=== PATIENT | female | born 1960 | race Caucasian/White ===

== ENCOUNTER → 2024-12-23 | Day surgery (SDC) | payer OTHER ==
[2024-12-18 13:24] VITALS: BP 138/82
[~2024-12-23] VITALS: Ht 162.6 cm; Wt 62.1 kg
[~2024-12-23] MED LIST: BUPIVACAINE HCL 30 ML VIAL IJ ONE; CEFAZOLIN SODIUM 1,000 MG VIAL IV ONE; CELEBREX100 MG PO; COZAAR100 MG PO; Cozaar PO; DEXAMETHASONE SODIUM PHOSPHATE 4 MG/ML VIAL ONE; DICLOFENAC SODI75 MG PO; FAMOTIDINE/PF 20 MG/2 ML VIAL IV PUSH ONE; INTESTINEX1 CA1 PO; NORVASC5 MG PO; PANTOPRAZOLE SODIUM 40 MG/VIAL VIAL IV PUSH ONE; PANTOPRAZOLE SODIUM 40 MG/VIAL VIAL ONE; PEPCID20 MG PO; PROTONIX40 MG PO; ROSUVASTATIN CA20 MG PO; SUGAMMADEX SODIUM 200 MG/2 ML VIAL IV ONE; Zolpidem Tartrate 10MG PO
== END | disposition home or self-care (01) ==
LOC: ADM 12-18 11:15 → CIR.AMB 07:00
PROVIDERS: ATTEND Orthopaedic Surgery Hand Surgery
DX: M65.341 Trigger finger, right ring finger (principal); D17.21 Benign lipomatous neoplasm of skin and subcutaneous tissue of right arm; R22.31 Localized swelling, mass and lump, right upper limb